=== PATIENT | female | born 1930 | race Caucasian/White ===

== ENCOUNTER → 2016-05-16 | Outpatient (CLI) | payer MEDICARE ==
[~2016-05-16] MED LIST: ACETAMINOPHEN325 MG PO; ARICEPT10 MG PO; CALCIUM CITRAT200 MG PO; CEROVITE SENIO1 EACH PO; COLACE-DPS100 MG PO; DETROL LA DPS4 MG PO; DONEPEZIL HCL10 MG PO; DULCOLAX-DPS10 MG PR; LEVOTHYROXINE75 MCG PO; LEXAPRO DPS10 MG PO; MAALOX DPS30 ML PO; MAPAP PM (TYLEN1 TAB PO; MELATONIN5 M2 PO; MIRALAX17 GM PO; MUCINEX600 MG PO; NAMENDA XR28 MG PO; NEURONTIN DPS100 MG PO; NORCO 5-325 TA1 EACH PO; NORVASC2.5 MG PO; REQUIP1 MG PO; SENOKOT-S TABL1 EACH PO; XARELTO10 MG PO
== END | disposition home or self-care (01) ==
LOC: RAD.S 07:14
DX: R41.3 Other amnesia (principal); J32.0 Chronic maxillary sinusitis

== ENCOUNTER 2016-11-11 13:55 | Inpatient (IN) | payer MEDICARE ==
[~2016-11-11] VITALS: Ht 157.5 cm; Wt 59.9 kg
--- NOTE | ~2016-11-11 | OR ---
ADMIT: 11/11/2016 RM/LOC: 532 [id number] [id number] [address] [address] [place] [address] Operative/Delivery Room Report SEX: F AGE: 86 : 1930 SURGERY DATE: 11/13/2016 SURGEON: Ramila Fam MD PREOPERATIVE DIAGNOSIS: Valgus impacted left femoral neck fracture. POSTOPERATIVE DIAGNOSIS: Valgus impacted left femoral neck fracture. PROCEDURE: Percutaneous screw fixation, left femoral neck fracture. ANESTHESIA: General. ESTIMATED BLOOD LOSS: 25 mL. IMPLANT: Synthes 7.3 mm cancellous screws, two 85 mm short thread screws, and one 90 mm short thread screw. DESCRIPTION OF PROCEDURE: This patient was brought to the operating room after a satisfactory level of anesthesia was achieved. The patient was placed on the fracture table in a supine position. All bony prominences were well padded. The patient was placed in the traction. AP and lateral C-arm images demonstrated a valgus impacted femoral neck fracture. Placing the patient through a range of motion, I could not demonstrate any instability at the fracture site. Therefore, the extremity was left in traction, prepped and draped in the usual sterile fashion. Through a 1-inch incision laterally, I was able to percutaneously fix the fracture with three cancellous screws. AP and lateral C-arm images demonstrated good fixation of the fracture. The wound was irrigated and closed with 2-0 Vicryl the subcutaneous tissue and perico in the skin. A sterile dressing was applied, and the patient was transferred from the operative suite in stable condition. Ramila Fam MD/ ildefonso JOB #: [id number] CC: Nakita Genao, Attending Physician Nakita Genao, Family Physician
[~2016-11-11 13:55] MED LIST changes: -ARICEPT10 MG PO; -DETROL LA DPS4 MG PO; -DULCOLAX-DPS10 MG PR; -MELATONIN5 M2 PO; -NORCO 5-325 TA1 EACH PO; -SENOKOT-S TABL1 EACH PO
--- NOTE | 2016-11-13 00:26 | ER ---
ADMIT: 11/11/2016 RM/LOC: 532 [facility] MR#: [id number] [address] [address] [place], [place] [address] Emergency Room Report SEX: F AGE: 86 : 1930 DATE: 11/11/2016 TIME: 1355 hours. Please refer to my T-sheet for complete H and P. Briefly, the patient is an 86-year-old, who has a slight dementia. Apparently, fell the other day. They went in and a plain x-ray did not show anything by their primary. She still continued to have same pain. She was told to get seen again if it did not get better. Her daughter checked on her today and said that the pain had vastly increased and she came in. She wants to know why it is still hurting. PHYSICAL EXAMINATION: VITAL SIGNS: Stable. HEENT: She has no pain in her neck. LUNGS: Clear. HEART: Regular. ABDOMEN: Soft. EXTREMITIES: Left hip has diffuse pain with range of motion. No gross deformity. No shortening. No irregularity, but definitely painful on range of motion. EMERGENCY DEPARTMENT COURSE: CT scan of her left hip revealed a nondisplaced femoral neck fracture, subcapital in nature. At this point, I did a CBC, it was essentially normal. Her EKG was sinus rhythm, rate 67, no changes. I offered pain meds, she did not want any, but we may titrate morphine as needed. We gave Zofran, established an IV. I talked to Dr. Westfall on-call for Dr. Genao and Dr. Fam. They will admit to the hospital. ASSESSMENT: 1. Left subcapital femoral neck fracture. 2. Left hip contusion. 3. Fall. PLAN: Admit to the hospital. Esau Lombardo MD/ ildefonso JOB #: [id number] CC: Nakita Genao MD, Attending Physician Nakita Genao MD, Family Physician
--- NOTE | 2016-11-13 12:38 | CO ---
ADMIT: 11/11/2016 RM/LOC: 532 [facility] MR#: [id number] [address] [address] [place] [address] Consultation Report SEX: F AGE: 86 : 1930 DATE OF CONSULTATION: 11/11/2016 ATTENDING PHYSICIAN: Nakita Genao CONSULTING PHYSICIAN: Ramila Fam MD CHIEF COMPLAINT: Left hip pain. HISTORY OF PRESENT ILLNESS: This is an 86-year-old lady who resides at [facility]. She fell, injuring her left hip on Friday. She was evaluated at Dr. Genao's office and radiographs at that time were negative. She is continued to walk on her hip although with considerable pain, and because of that, she presented to the emergency room today with ongoing pain and difficulty ambulating. CT scan showed a nondisplaced impacted fracture of the left femoral neck. PAST MEDICAL HISTORY: She has a history of hypothyroidism, osteoarthritis, cholecystectomy, right foot surgery, pulmonary embolus. ALLERGIES: NO ALLERGIES REPORTED. MEDICATIONS: She is on Xarelto. FAMILY HISTORY: Noncontributory. SOCIAL HISTORY: The patient lives at [facility]. A family member accompanies her today. REVIEW OF SYSTEMS: No other respiratory, cardiac, GI or complaints. PHYSICAL EXAMINATION: EXTREMITIES: No obvious deformity of left lower extremity, but marked pain with attempts at range of motion. Good neurocirculatory function. IMAGING STUDIES: CT scan was described above. IMPRESSION: Impacted nondisplaced left femoral neck fracture. RECOMMENDATIONS: Percutaneous screw fixation of the left hip. Risks, benefits, alternatives, as well as potential complications were discussed. Ramila Fam MD/ ildefonso JOB #: [id number] CC: Nakita Genao, Attending Physician ADMIT: 11/11/2016 RM/LOC: 532 [facility] MR#: [id number] [address] [address] [place] [address] Consultation Report SEX: F AGE: 86 : 1930 Nakita Genao, Family Physician
--- NOTE | 2016-11-14 08:13 | HP ---
ADMIT: 11/11/2016 RM/LOC: 532 [facility] MR#: [id number] [address] [address] [place], [place] [address] History and Physical SEX: F AGE: 86 : 1930 DATE OF SERVICE: REASON FOR ADMISSION: Persistent pain and discomfort in groin with evidence of nondisplaced left femoral neck fracture as per seen on CT with planned surgical intervention, percutaneous screw fixation by Dr. Fam. HISTORY OF PRESENT ILLNESS: She was seen and evaluated in the clinic last week on Friday after a fall. X-ray did not show any evidence of fracture. She had pain and discomfort in her buttocks and lateral hip. She did not have any groin pain. She has had since that time, development of groin pain and further evaluation was found to have evidence of a fractured hip. She is admitted for continued evaluation and care and surgical intervention. PAST MEDICAL HISTORY: She has a past medical history of hypothyroidism, osteoarthritis, depression, hysterectomy, history of carpal tunnel syndrome, cholecystectomy, right foot surgery, dementia, depression. FAMILY HISTORY: Noncontributory. REVIEW OF SYSTEMS: She has just moved to an assisted living and has been doing very well in that place. She had no anterior chest pain or chest pressure, increasing shortness breath, or respiratory distress. Denies any changes in her bowel or bladder habits. Approximately a month ago, was diagnosed with a pulmonary embolism and has been on chronic anticoagulation with Xarelto therapy. CURRENT MEDICATIONS: 1. Calcium daily. 2. Multivitamin. 3. Aricept 10 mg daily. 4. Lexapro 10 mg daily. 5. Levothyroxine 75 mcg daily. 6. Mucinex. 7. Namenda XR 28 mg daily. 8. Ropinirole 1 mg at bedtime. 9. Tolterodine 4 mg at bedtime. 10.Xarelto 20 mg daily. 11.Docusate sodium. 12.Gabapentin 100 mg two to three tabs every 4 hours p.r.n. 13.Melatonin. 14.MiraLax. ALLERGIES: TO CODEINE. PHYSICAL EXAMINATION: GENERAL: She is alert, articulate, cooperative. HEENT: Normal. HEART: Shows regular rhythm. She is in sinus rhythm. LUNGS: Clear, but diminished to auscultation. ABDOMEN: Soft, nontender, nondistended. ADMIT: 11/11/2016 RM/LOC: 532 [facility] MR#: [id number] [address] [address] [place] [address] History and Physical SEX: F AGE: 86 : 1930 EXTREMITIES: No evidence of peripheral edema. Pain and discomfort with movement of her hip. ASSESSMENT: Admission of an elderly white female with planned screw fixation of left hip for a nondisplaced subcapital femoral neck fracture. We at this time will admit to [facility], Dr. Fam will perform her surgery tomorrow. She is currently on Xarelto therapy, which will be on hold for at least 48 hours. We will plan discharge planning to [email or web address] at the time of discharge as she is not being able to bear weight. Mild anemia, which we will watch and assess. Urinalysis showed 1+ leukocytes, we will await culture, she is asymptomatic. History of recent pulmonary embolism, we at this time will continue with deep vein thrombosis precautions with pneumatic compression stockings and MORE hose. Continue to follow closely. Nakita Genao MD/ ildefonso JOB #: [id number] CC: Nakita Genao, Attending Physician Nakita Genao, Family Physician
[2016-11-17] MEDS ORDERED: DETROL LA DPS4 MG PO (09:29)
[2016-11-17] MEDS ORDERED: ARICEPT10 MG PO (09:29)
[2016-11-17] MEDS ORDERED: DULCOLAX-DPS10 MG PR (09:30)
[2016-11-17] MEDS ORDERED: SENOKOT-S TABL1 EACH PO (09:30)
[2016-11-17] MEDS ORDERED: MELATONIN5 M2 PO (09:30)
[2016-11-17] MEDS ORDERED: NORCO 5-325 TA1 EACH PO (09:31)
== END 2016-11-15 11:25 | DRG 482 ==
LOC: ER 13:55 → 5MS 16:55
PROVIDERS: ADMIT Internal Medicine
PROC: 0QH734Z Insertion of Internal Fixation Device into Left Upper Femur, Percutaneous Approach (ICD-10-PCS; principal; 2016-11-13)
DX: S72.012A Unspecified intracapsular fracture of left femur, initial encounter for closed fracture (principal); F03.90 Unspecified dementia, unspecified severity, without behavioral disturbance, psychotic disturbance, mood disturbance, and anxiety; Z23 Encounter for immunization; E03.9 Hypothyroidism, unspecified; W19.XXXA Unspecified fall, initial encounter; M19.90 Unspecified osteoarthritis, unspecified site; F32.9 Major depressive disorder, single episode, unspecified; Z79.01 Long term (current) use of anticoagulants; Z86.711 Personal history of pulmonary embolism